=== PATIENT | female | born 1980 | race African-American/Black ===

== ENCOUNTER 2021-03-05 02:13 | Inpatient (IN) | payer MEDICAID ==
[~2021-03-05] VITALS: Ht 167.6 cm; Wt 86.2 kg
[~2021-03-05 02:13] MED LIST: AZIT500T3 MT; DEX2 MT; hydrochlorothiazide PO
[2021-03-05 05:18] LABS: BASOPHILS % 0.3 % (0.0-2.0); EOSINOPHILS % 0.6 % (0.0-5.0); HEMATOCRIT. 35.5 % (36.0-48.0); HEMOGLOBIN. 11.9 g/dL (12.0-16.0); LYMPHOCYTES % 19.1 % (20.0-50.0); MEAN CORPUSCULAR HEMOGLOBIN 29.7 pg (28.0-32.0); MEAN CORPUSCULAR VOLUME 88.8 fL (81.0-99.0); MEAN PLATELET VOLUME 7.3 fl (7.4-10.4); MONOCYTES % 13.3 % (2.0-8.0); NEUTROPHILS % 66.7 % (40.0-76.0); PLATELET 175 x1000/uL (130-400)
[2021-03-05 05:22] LABS: CHLORIDE 103 mEq/L (98-107)
[2021-03-05 06:08] LABS: HCG SCREEN NEGATIVE
[2021-03-05] MEDS ORDERED: ENOXAPARIN 60MG/0.6ML SYR SUBCUT ONE (09:00)
[2021-03-05] MEDS ORDERED: IOHEXOL-350 100 ML BOTTLE ONE (09:03)
[2021-03-05] MEDS ORDERED: CLONIDINE 0.1MG TABLET PO PRN (13:15)
[2021-03-05] MEDS ORDERED: MAGNESIUM/ALUMINUM HYDROXIDE/SIMETHICONE 30ML UDC PO PRN (13:15)
[2021-03-05] MEDS ORDERED: DOCUSATE SODIUM 100MG CAPSULE PO PRN (13:15)
[2021-03-05] MEDS ORDERED: ONDANSETRON HCL 4MG/2ML INJ IV PRN (13:15)
[2021-03-05] MEDS ORDERED: HYDROCODONE/ACETAMINOPHEN 5/325MG TABLET PO PRN (13:15)
[2021-03-05] MEDS ORDERED: ACETAMINOPHEN 325MG TABLET PO PRN (13:15)
[2021-03-05] MEDS ORDERED: GUAIFENESIN 200MG/10ML SUGAR FREE UDC PO PRN (13:15)
[2021-03-05] MEDS ORDERED: NALOXONE HCL 0.4MG/ML VIAL IV PRN (13:45)
[2021-03-05] MEDS: ENOXAPARIN 80MG/0.8ML SYR SUBCUT SCH (19:24)
[2021-03-05 23:41] VITALS: BP 126/89
[2021-03-05 23:45] VITALS: BP 126/89
[2021-03-06 04:00] VITALS: BP 120/85
[2021-03-06] MEDS: ENOXAPARIN 80MG/0.8ML SYR SUBCUT SCH (06:42)
[2021-03-06 08:14] VITALS: BP 143/90
[2021-03-06] MEDS ORDERED: ASPIRIN 81MG EC TABLET PO SCH (09:00)
[2021-03-06 10:15] LABS: BASOPHILS % 0.5 % (0.0-2.0); EOSINOPHILS % 1.4 % (0.0-5.0); HEMATOCRIT. 36.9 % (36.0-48.0); HEMOGLOBIN. 12.2 g/dL (12.0-16.0); LYMPHOCYTES % 29.3 % (20.0-50.0); MEAN CORPUSCULAR HEMOGLOBIN 29.1 pg (28.0-32.0); MEAN CORPUSCULAR VOLUME 88.3 fL (81.0-99.0); MEAN PLATELET VOLUME 7.6 fl (7.4-10.4); MONOCYTES % 12.9 % (2.0-8.0); NEUTROPHILS % 55.9 % (40.0-76.0); PLATELET 185 x1000/uL (130-400); RED BLOOD CELL COUNT 4.18 mill/uL (4.2-5.4)
[2021-03-06 10:17] LABS: INR 0.9
[2021-03-06 10:18] LABS: CHLORIDE 107 mEq/L (98-107)
[2021-03-06 12:11] VITALS: BP 121/80
[2021-03-06 12:35] VITALS: BP 121/80
== END 2021-03-06 16:04 | disposition home or self-care (01) | DRG 134 ==
LOC: ER 02:13 → MICUSO 09:42 → 6WST 22:33
PROVIDERS: ADMIT Hospitalist; ATTEND Hospitalist
DX: I26.99 Other pulmonary embolism without acute cor pulmonale (principal); E43 Unspecified severe protein-calorie malnutrition; Z99.81 Dependence on supplemental oxygen; I10 Essential (primary) hypertension; Z20.822 Contact with and (suspected) exposure to COVID-19; Z79.899 Other long term (current) drug therapy
CPT/HCPCS: 36415; 71045; 71275; 80053; 83880; 84484; 84703; 85025; 85379; 87426; 93005; 93306; 93970; 99285; J1650; Q9967